=== PATIENT | female | born 1930 | race Caucasian/White ===

== ENCOUNTER → 2016-12-30 | Outpatient (CLI) | payer MEDICARE, OTHER ==
--- NOTE | 2016-12-30 09:20 | RAD ---
EXAM DESCRIPTION: Knee,Left Complete CLINICAL HISTORY: 86 years Female, [employer] IMPRESSION: Tricompartment degenerative change is noted, stable when compared to September 26, 2016. The transversely oriented patellar fracture has demonstrated significant healing with obscuration of the fracture line along the anterior margin of the patella. There remains a fracture line posteriorly no new fractures noted. Electronically signed by: Mane Elizondo MD 12/30/2016 9:19 AM CDT
== END ==
LOC: RAD 08:33
PROVIDERS: ATTEND Orthopaedic Surgery
DX: S82.002D Unspecified fracture of left patella, subsequent encounter for closed fracture with routine healing (principal)

== ENCOUNTER → 2017-03-16 | Outpatient (CLI) | payer MEDICARE, OTHER ==
--- NOTE | 2017-03-16 11:39 | RAD ---
EXAM DESCRIPTION: Knee,Left Complete CLINICAL HISTORY: 87 years, Female, [employer] COMPARISON: December 30, 2016 TECHNIQUE: Two views of the left knee FINDINGS: The left knee is osteopenic and degenerative with significant joint space narrowing medially with previous internal fixation of the patella. Tiny amount of lucency at the anterior aspect of the patella is evident but a distinct fracture line is not well seen on the lateral view with a suggestion of a very faint fracture line still evident on the AP view projecting through the distal femur. The appearance is essentially unchanged from study three months earlier. IMPRESSION: 1. Stable appearance of the knee with internal fixation of the patella with minimal residual lucency through a transverse patellar fracture, unchanged. 2. Advanced degenerative changes of the knee, particularly medial joint compartment. Electronically signed by: Scott Sanchez MD 03/16/2017 11:39 AM CDT
== END | disposition home or self-care (01) ==
LOC: RAD 09:29
PROVIDERS: ATTEND Orthopaedic Surgery
DX: S82.002D Unspecified fracture of left patella, subsequent encounter for closed fracture with routine healing (principal); Z01.818 Encounter for other preprocedural examination

== ENCOUNTER → 2017-03-17 | Outpatient (CLI) | payer MEDICARE, OTHER | END | disposition home or self-care (01) | LOC: GMAB 14:42 | PROVIDERS: ATTEND Family Medicine | DX: I10 Essential (primary) hypertension (principal) ==

== ENCOUNTER 2017-03-24 05:53 | Day surgery (SDC) | payer MEDICARE, OTHER ==
[2017-03-24] MEDS ORDERED: LACTATED RINGERS 1,000 ML ONE ×2 (05:57→06:18)
[2017-03-24] MEDS ORDERED: ceFAZolin SODIUM 1 GM VIAL ONE ×3 (05:57→06:46)
[2017-03-24] MEDS ORDERED: SODIUM CHL 0.9% 100ML MINI-BAG 100 ML IVPB ONE (05:57)
[2017-03-24] MEDS ORDERED: fentaNYL CITRATE INJ 50 MCG/ML AMP ONE (06:17)
[2017-03-24] MEDS ORDERED: BUPIVACAINE 0.25% W/EPI 50 ML VIAL INJ ONE (06:43)
[2017-03-24] MEDS ORDERED: LIDOCAINE 1% W/ EPINEPHRINE 20 ML VIAL INJ ONE (06:43)
[2017-03-24] MEDS ORDERED: VANCOMYCIN HCL INJ 1,000 MG VIAL IVPB ONE (06:43)
[2017-03-24 09:48] VITALS: BP 141/83; TEMP 97.2; O2SAT 100
--- NOTE | 2017-03-24 09:50 | RAD ---
EXAM DESCRIPTION: Knee,Left 2 or More Views CLINICAL HISTORY: 87 yearsFemale, Post-op COMPARISON: 03/16/2017 IMPRESSION: Again demonstrated is fixation hardware traversing a fracture in the patella. Mild callus formation demonstrated at the fracture site. Alignment is stable compared to the prior exam. There is marked osteopenia. Severe changes of osteoarthritis are present involving all 3 compartment of the knee. There is no evidence of new fracture or destructive osseous lesion. Electronically signed by: Remington Allen MD 03/24/2017 9:49 AM CDT
[2017-03-24] MEDS ORDERED: LIDOCAINE 1% 10 ML VIAL INJ ONE (12:00)
[2017-03-24] MEDS ORDERED: PROPOFOL 200 MG/20 ML VIAL IV ONE (12:00)
--- NOTE | 2017-03-25 08:44 | OP ---
DATE OF PROCEDURE: 03/24/17 PREOPERATIVE DIAGNOSIS: 1. Symptomatic hardware of the knee. POSTOPERATIVE DIAGNOSIS: 1. Symptomatic hardware of the knee. PROCEDURE: 1. Hardware removal. SURGEON: Joe Barcenas MD. NETWORK COMMUNICATIONS ENGINEER: Hamzah Kumari CST, SA-C. ANESTHESIA: General. COMPLICATIONS: None. FINDINGS: Hardware protruding through the skin, just distal and lateral to the patella. INDICATION: Ms. Yeager as a history of open reduction and internal fixation of her patella fracture. She has had irritation over that area for a long time. She did heal the fracture. She had refused previous removal of the hardware, but now is having symptoms of sharp pains at the most distal portion where the hardware is prominent. Because of the ongoing pain, she has requested removal of the hardware. After discussing the risks, benefits and alternatives to that , she has given informed consent for that. PROCEDURE: The patient was brought to the Operating Room and placed in supine position. General anesthesia was induced and the patient's leg was sterilely prepped and draped. Following prepping and draping, an incision was made directly over the prominent hardware and it was elliptical in nature to cut out the tract from the long-term irritation. There was no evidence of purulence and no evidence of erythema. The hardware was immediately identified and the end of the K-wire was cleared of soft tissue. It was clipped at its base and there was no more prominence palpable. The wound was irrigated and because of there was no further palpable hardware, the decision was made to leave the rest of the hardware in situ. We had discussed this prior to surgery and I had discussed this also with her son who does have power of immigration attorney as well. The wound was irrigated and closed with Nylon suture. Sterile dressing was placed. The patient was awoken from anesthesia and taken to Recovery. POSTOPERATIVE INSTRUCTIONS: She will be weight-bearing as tolerated and followup with us in two days. #[id number] [facility]
== END 2017-03-24 09:30 | disposition home or self-care (01) ==
LOC: AMB 05:53
PROVIDERS: ATTEND Orthopaedic Surgery
DX: Z47.2 Encounter for removal of internal fixation device (principal); I10 Essential (primary) hypertension; E11.9 Type 2 diabetes mellitus without complications; M17.12 Unilateral primary osteoarthritis, left knee; Z88.2 Allergy status to sulfonamides; Z79.82 Long term (current) use of aspirin; Z79.899 Other long term (current) drug therapy
CPT/HCPCS: 01392; 20680; 36415; 36416; 73560; 82948; J0690; J3010; J3370; J3490; J7050; J7120

== ENCOUNTER → 2017-05-06 | Outpatient (CLI) | payer MEDICARE, OTHER | END | disposition home or self-care (01) | LOC: GMAB 15:04 | PROVIDERS: ATTEND Family Medicine | DX: R10.13 Epigastric pain (principal) ==

== ENCOUNTER → 2017-05-08 | Outpatient (CLI) | payer MEDICARE, OTHER ==
--- NOTE | 2017-05-11 09:56 | CT ---
EXAM DESCRIPTION: Abdomen w/wo Contrast CLINICAL HISTORY: 87 years,Female,EPIGASTRIC ABD PAIN COMPARISON: None TECHNIQUE: Multiple axial tomographic images were obtained of the abdomen and pelvis with and without IV contrast and oral contrast. Then reconstructed in sagittal and coronal planes. This exam was performed using radiation doses that are As Low As Reasonably Achievable (ALARA). FINDINGS: The kidneys demonstrate a stone in the ureter pelvic junction of the left kidney measuring about 7 mm in size. With no significant hydronephrosis The adrenal glands are unremarkable. The spleen is unremarkable. The liver is unremarkable. The pancrease is unremarkable. The gallbladder surgically absent. The included bowel demonstrate a few diverticula sigmoid colon but no acute disease. The appendix is unremarkable. There is no free air, free fluid, masses, or significant adenopathy. Surrounding soft tissues and bony elements unremarkable. Except large osteophyte changes throughout the lumbar spine with mild loss of disc height and severe facet hypertrophy at the lower 2 lumbar levels. Uterus is present and it demonstrates possible thickening of the endometrium up to over 2 cm. IMPRESSION: Possible thickening of the endometrial canal which can be seen in carcinoma. Recommend ultrasound transvaginal of the uterus for better evaluation. A message was left on Dr. Cevallos's office voicemail. 7 mm left ureter pelvic stone with no obstruction. Electronically signed by: Gregory Orosco MD 05/11/2017 9:55 AM CDT
== END | disposition home or self-care (01) ==
LOC: CT 09:11
PROVIDERS: ATTEND Family Medicine
DX: R10.13 Epigastric pain (principal)